=== PATIENT | female | born 1960 | race Caucasian/White ===

== ENCOUNTER 2024-08-31 11:42 | Outpatient (REF) | payer MEDICARE, SELFPAY ==
--- NOTE | 2024-08-31 08:45 | SKI_PTH ---
PATIENT: ISSA VIRK LOC: [facility] U#:[id number] AGE/SX: 64/F ROOM: RE08/31/[address]: Shawn Ding DO : 1960 BED: DIS: 08/31/2024 SPEC #: [id number] RECD: 09/03/24 11:53 STATUS: [place] REQ #: [id number] JOANN: 08/31/24 08:[address]: Shawn Ding DEPT: Surgical Specimen RECD BY: Precious Alfonso ENTERED: 09/03/24 11:53 SP TYPE: OSMAN WISE DR: Masha Shrestha Tissues: 1 - SKIN BIOPSY(SHAVE/PUNCH) Procedures: SKIN LEVEL 4 Comments: [id number]
== END 2024-08-31 11:43 | disposition home or self-care (01) ==
LOC: LBN 11:42
PROVIDERS: PCP Nurse Practitioner Family; Visit Provider Otolaryngology Otolaryngology/Facial Plastic Surgery
DX: L82.1 Other seborrheic keratosis (principal); D49.2 Neoplasm of unspecified behavior of bone, soft tissue, and skin
CPT/HCPCS: 88305